=== PATIENT | male | born 1970 | race Caucasian/White ===

== ENCOUNTER 2016-12-08 16:13 | Observation (INO) | payer OTHER ==
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
[2016-12-08] MEDS ORDERED: HYDROmorphONE/DILAUDID 1 MG/ML SYR IVP ONE ×2 (17:08→19:23)
[2016-12-08] MEDS ORDERED: IOPAMIDOL (ISOVUE-300) 100 ML BTL IV ONE (17:47)
[2016-12-08] MEDS ORDERED: HYDROmorphONE/DILAUDID 1 MG/ML SYR ONE (19:14)
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
[2016-12-08] MEDS: HYDROCODONE/APAP 5/325 TAB PO PRN (21:19)
[2016-12-08] MEDS: CYCLOBENZAPRINE 10 MG TAB PO SCH (21:22)
[2016-12-09] MEDS: HYDROCODONE/APAP 5/325 TAB PO PRN ×2 (02:03→10:51)
[2016-12-09] MEDS: IBUPROFEN 600 MG TAB PO SCH ×2 (02:04→07:26)
[2016-12-09 06:19] LABS: % IMMATURE GRANULYOCYTES 0.2 % (0.0-1.1); ABSOLUTE IMMATURE GRANULOCYTES 0.02 10^3/uL (0.00-0.10); ADD DIFF? NO; ADD MORPH? NO; ADD SCAN? NO; ATYPICAL LYMPHOCYTE FLAG 0 (0-99); FRAGMENT RBC FLAG 0 (0-99); HEMOGLOBIN 14.4 g/dL (13.7-17.5); LEFT SHIFT FLG 0 (0-99); LIPEMIA HEMOLYSIS FLAG 90 (0-99); MEAN CELL HEMOGLOBIN 29.4 pg (27.9-34.1); MEAN CELL HEMOGLOBIN CONCENTR. 34.3 g/dL (32.4-36.7); MEAN CELL VOLUME 85.9 fL (81.5-99.8); MEAN PLATELET VOLUME 10.1 fL (8.7-11.7); PLATELET CLUMPS FLAG 0 (0-99); PLATELET COUNT 168 10^3/uL (150-400); RED BLOOD CELL COUNT 4.89 10^6/uL (4.40-6.38); RED CELL DISTRIBUTION WIDTH 12.6 % (11.5-15.2)
[2016-12-09 06:50] LABS: ANION GAP 7 mEq/L (8-16); CALCIUM 8.9 mg/dL (8.5-10.4); CARBON DIOXIDE 26 mEq/l (22-31); CHLORIDE 105 mEq/L (97-110); CREATININE 0.7 mg/dL (0.7-1.3); GLOMERULAR FILTRATION RATE > 60; GLUCOSE 87 mg/dL (70-100); POTASSIUM 4.1 mEq/L (3.5-5.2); SODIUM 138 mEq/L (134-144)
[2016-12-09 07:22] VITALS: TEMP 98.2
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
[2016-12-09] MEDS ORDERED: ENOXAPARIN 40 MG/0.4 ML SYR SC SCH (09:00)
[2016-12-09 09:17] VITALS: BP 125/70; PULSE 56; RESP 12; O2SAT 98
[2016-12-09] MEDS: CYCLOBENZAPRINE 10 MG TAB PO SCH (10:51)
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
== END 2016-12-09 11:00 | disposition home or self-care (01) ==
LOC: EDUNIT# → F2N 19:36
PROVIDERS: ADMIT Surgery; ATTEND Surgery
DX: S42.021A Displaced fracture of shaft of right clavicle, initial encounter for closed fracture (principal); S22.41XA Multiple fractures of ribs, right side, initial encounter for closed fracture; S27.0XXA Traumatic pneumothorax, initial encounter; S27.321A Contusion of lung, unilateral, initial encounter; V19.3XXA Pedal cyclist (driver) (passenger) injured in unspecified nontraffic accident, initial encounter; Y93.55 Activity, bike riding; Y92.39 Other specified sports and athletic area as the place of occurrence of the external cause
CPT/HCPCS: 71010; 71101; 71260; 73000; 73564; 74177; 97161; G0378; 96374; J1170; Q9967

== ENCOUNTER → 2016-12-18 | Outpatient (CLI) | payer OTHER | LOC: FIMAGING 12:55 | PROVIDERS: ATTEND Surgery | DX: S27.2XXD Traumatic hemopneumothorax, subsequent encounter (principal); S22.41XD Multiple fractures of ribs, right side, subsequent encounter for fracture with routine healing; J90 Pleural effusion, not elsewhere classified ==

== ENCOUNTER → 2016-12-20 | Outpatient (CLI) | payer OTHER | LOC: FIMAGING 14:25 → EDSTATUS 14:26 → FIMAGING 14:27 | PROVIDERS: ATTEND Surgery | DX: J93.83 Other pneumothorax (principal) ==

== ENCOUNTER → 2017-01-01 | Outpatient (CLI) | payer OTHER | LOC: FIMAGING 09:10 | PROVIDERS: ATTEND Surgery | DX: J93.9 Pneumothorax, unspecified (principal) ==